=== PATIENT | female | born 1985 | race Caucasian/White ===

== ENCOUNTER 2018-06-08 22:58 | Emergency (ER) | payer OTHER ==
[2018-06-08 23:36] LABS: BILIRUBIN,URINE NEGATIVE (NEGATIVE); GLUCOSE, URINE (UA) NEGATIVE (NEGATIVE); KETONES,URINE (UA) >=80 mg/dL (NEGATIVE); LEUKOCYTE ESTERASE, URINE MODERATE (NEGATIVE); NITRITE,URINE POSITIVE (NEGATIVE); OCCULT BLOOD,URINE LARGE (NEGATIVE); PH,URINE 6.5 PH (5.0-7.5); PROTEIN,URINE 100 mg/dL (NEGATIVE); UROBILINOGEN,URINE 0.2 (NORMAL) E.U./dL (NORMAL)
--- NOTE | 2018-06-08 23:43 | ED Physician Documentation ---
PD HPI FEMALE - Stated complaint Stated Complaint: BK PX - Chief complaint Chief Complaint: Wound - History obtained from History obtained from: Patient - History of Present Illness Timing - onset: How many days ago (3) Timing - duration: Days (3) Timing - details: Gradual onset Pain level max: 5 Pain level max: 5 Severity Comments: mild Associated symptoms: Back pain, Dysuria Contributing factors: Review of Systems Ten Systems: 10 systems reviewed and negative Constitutional: reports: Reviewed and negative Eyes: reports: Reviewed and negative Ears: reports: Reviewed and negative Nose: reports: Reviewed and negative Throat: reports: Reviewed and negative Cardiac: reports: Reviewed and negative Respiratory: reports: Reviewed and negative GI: reports: Reviewed and negative : reports: Dysuria Skin: reports: Reviewed and negative Musculoskeletal: reports: Back pain, Reviewed and negative Neurologic: reports: Reviewed and negative Psychiatric: reports: Reviewed and negative Endocrine: reports: Reviewed and negative Immunocompromised: reports: Reviewed and negative PD PAST MEDICAL HISTORY - Past Medical History Past Medical History: No - Past Surgical History Past Surgical History: Yes Ortho: Arthroscopic surgery, Other - Present Medications Home Medications: Ambulatory Orders Medication Instructions Recorded Confirmed Nitrofurantoin Monohyd/M-Cryst 100 mg PO BID #14 capsule 06/09/18 [Macrobid 100 mg Capsule] - Allergies Allergies/Adverse Reactions: Allergies Allergy/AdvReac Type Severity Reaction Status Date / Time cephalexin [From Keflex] Allergy Hives Verified 06/08/18 23:05 - Social History Does the pt smoke?: No Smoking Status: Never smoker Does the pt drink ETOH?: No Does the pt have substance abuse?: No - Family History Family history: reports: Other (Reviewed and not pertinent) - Immunizations Immunizations are current?: Yes Immunizations: TDAP >10years/unknown - POLST Patient has POLST: No PD ED PE NORMAL - Vitals Vital signs reviewed: Yes - General General: Alert and oriented X 3, No acute distress - HEENT HEENT: PERRL - Neck Neck: Supple, no meningeal sign - Cardiac Cardiac: RRR, No murmur - Respiratory Respiratory: Clear bilaterally - Abdomen Abdomen: Normal bowel sounds, Soft, Non tender, Non distended - Derm Derm: Warm and dry - Extremities Extremities: No deformity - Neuro Neuro: Alert and oriented X 3 - Psych Psych: Normal mood, Normal affect Results - Vitals Vitals: Vital Signs - 24 hr 02/26/19 02/27/19 23:02 01:15 Temperature 36.4 C L Heart Rate 102 H 83 Respiratory 18 16 Rate Blood Pressure 132/78 H 114/71 O2 Saturation 96 99 Oxygen O2 Source Room air - Labs Labs: Laboratory Tests 06/08/18 23:29 Urine Color YELLOW Urine Clarity CLOUDY Urine pH 6.5 Ur Specific [place] 1.025 Urine Protein 100 H Urine Glucose (UA) NEGATIVE Urine Ketones >=80 H Urine Occult Blood LARGE H Urine Nitrite POSITIVE H Urine Bilirubin NEGATIVE Urine Urobilinogen 0.2 (NORMAL) Ur Leukocyte Esterase MODERATE H Urine RBC TNTC H Urine WBC >25 H Ur Squamous Epith Cells FEW Squamous Urine Bacteria Moderate H Ur Microscopic Review INDICATED Urine Culture Comments INDICATED PD MEDICAL DECISION MAKING - ED course Complexity details: reviewed results, re-evaluated patient, considered differential, d/w patient, d/w family ED course: 33-year-old female presents with dysuria. Labs consistent with urinary tract infection. Patient given 1 dose of IM Rocephin and discharged on Macrobid. Return precautions reviewed. No evidence of acute systemic infection with no fever and heart rate just above 100 consistent with .Patient encouraged to follow-up with OB provider within 24 hours. Departure - Departure Disposition: 01 Home, Self Care Clinical Impression: UTI in Qualifiers: Trimester: first trimester Qualified Code(s): O23.41 - Unspecified infection of urinary tract in , first trimester Instructions: ED UTI Cystitis Female Follow-Up: Your, OB [Other] Prescriptions: Nitrofurantoin Monohyd/M-Cryst [Macrobid 100 mg Capsule] 100 mg PO BID #14 capsule Comments: You may take Benadryl or Zyrtec as needed for rash. Follow-up with OB within 24 hours. Return with worsening symptoms. Take Tylenol up to 1000 mg 3 times daily as needed for pain. Discharge Date/Time: 06/09/18 01:53
[2018-06-08 23:51] LABS: CLARITY,URINE CLOUDY (CLEAR)
[2018-06-08 23:57] LABS: BACTERIA,URINE Moderate /HPF (None Seen); RBC,URINE TNTC /HPF (0-5); SQUAMOUS EPITHELIAL CELL,UR FEW Squamous (<= Few)
[2018-06-09] MEDS ORDERED: LIDOCAINE 1% 2 ML VIAL SUBQ ONE (00:05)
[2018-06-09] MEDS ORDERED: cefTRIAXone 1 GM VIAL IM STA (00:05)
[2018-06-09] MEDS ORDERED: ACETAMINOPHEN 500 MG TABLET PO STA (00:19)
[2018-06-09] MEDS ORDERED: FLUCONAZOLE 100 MG TABLET PO STA (00:39)
[2018-06-09 01:16] VITALS: BP 114/71
[2018-06-09] MEDS ORDERED: ONDANSETRON ODT 4 MG TABLET TL STA (01:18)
[2018-06-09] MEDS ORDERED: oxyCODONE 5 MG TABLET PO STA (01:18)
[2018-06-09] MEDS ORDERED: diphenhydrAMINE 25 MG CAPSULE PO STA (01:19)
== END 2018-06-09 01:53 | disposition home or self-care (01) ==
LOC: ED 22:58
DX: O23.41 Unspecified infection of urinary tract in pregnancy, first trimester (principal); Z3A.00 Weeks of gestation of pregnancy not specified
CPT/HCPCS: 81001; 87086; 96372; 99283; A9270; Q0162; 81003; 87181

== ENCOUNTER 2020-01-07 09:55 | Outpatient (CLI) | payer OTHER ==
--- NOTE | 2020-01-09 09:20 | MRI Report ---
PROCEDURE: Knee RT W/O INDICATIONS: RT KNEE PAIN TECHNIQUE: Noncontrast sagittal PD fast spin echo and T2 fast spin echo with fat saturation, sagittal 3-D gradie nt sequence with fat saturation; coronal T1 spin echo and PD fast spin echo with fat saturation, and axial PD fast spin echo with fat saturation through the knee. COMPARISON: None. FINDINGS: Image quality: Excellent. Menisci: The medial and lateral menisci demonstrate normal morphology and internal signal. The meni scal root ligaments appear intact. Cruciate ligaments: The anterior and posterior cruciate ligaments appear intact. Medial structures: The medial collateral ligament appears intact. Visualized portions of the pes an serinus tendons appear normal. No abnormal bursal fluid. Lateral structures: The lateral collateral ligament, long and short heads of the biceps femoris tend on appear intact. The popliteus tendon appears normal. Iliotibial band appears normal. Anterior structures: The quadriceps and patellar tendons appear intact. Mild T2 signal elevation wit hin the patellar tendon at the patellar insertion site. Lateral patellar subluxation. No femoral troc hlear dysplasia or ventral trochlear prominence. Moderate edema in the superolateral aspect of the in frapatellar fat pad. Bones and cartilage: No bone marrow contusions or fractures. There is mild degenerative marrow edema as well as subchondral cyst formation within the lateral patellar facet. Mild diffuse articular cart ilage loss overlies the weightbearing aspects of the medial femoral condyle and medial tibial plateau . Moderate to high-grade articular cartilage loss overlies the lateral patellar facet mid and inferio r aspects. Joint space: There is physiologic knee joint fluid. No Koch?s cyst. Normal appearing synovial pli are incidentally noted. IMPRESSION: 1. Findings consistent with lateral patellofemoral friction syndrome in the appropriate clinical sett ing. There is associated patellofemoral compartment articular cartilage loss. 2. No internal derangement. 3. Mild patellar tendinitis. Reviewed by: Lise Cruz MD on 01/09/2020 9:19 AM PDT Approved by: Lise Cruz MD on 01/09/2020 9:19 AM PDT Station ID: [id number]
== END 2020-01-07 09:56 | disposition home or self-care (01) ==
LOC: DI 09:55
PROVIDERS: ATTEND Nurse Practitioner Family
DX: M76.51 Patellar tendinitis, right knee (principal)

== ENCOUNTER 2020-02-28 06:13 | Day surgery (SDC) | payer OTHER ==
[2020-02-28] MEDS ORDERED: ONDANSETRON 4 MG/2 ML VIAL IVP ONE (06:14)
[2020-02-28] MEDS ORDERED: LIDOCAINE-MPF 2% 5 ML VIAL IM ONE (06:14)
[2020-02-28] MEDS ORDERED: DEXAMETHASONE 4 MG/ML VIAL IVP ONE (06:14)
[2020-02-28] MEDS ORDERED: MIDAZOLAM 2 MG/2 ML VIAL IVP ONE (06:14)
[2020-02-28] MEDS ORDERED: fentaNYL 100 MCG/2 ML VIAL IVP ONE (06:14)
[2020-02-28] MEDS ORDERED: CEFAZOLIN SODIUM IN 0.9 % NACL 0 GM/0 ML BAG IV ONE (06:19)
[2020-02-28] MEDS ORDERED: LACTATED RINGERS 1,000 ML IV ONE ×3 (06:19→12:00)
[2020-02-28 06:52] LABS: HCG UR QUAL NEGATIVE
[2020-02-28] MEDS ORDERED: BUPIVACAINE 0.25% PF 30 ML VIAL ONE (07:04)
[2020-02-28] MEDS ORDERED: EPINEPHrine 1 MG/ML AMP ONE (07:04)
--- NOTE | 2020-02-28 07:08 | ANESTHESIA ---
Pre-Anesthesia VS, & Labs - Diagnosis Right Knee Pain - Procedure Right Knee Scope PFL repair Vital Signs: Temp Pulse Resp BP Pulse Ox 36.4 C L 81 16 120/84 H 100 02/28/20 06:25 02/28/20 06:25 02/28/20 06:25 02/28/20 06:25 02/28/20 06:25 Height: 5 ft 6 in Weight (kg): 81.65 kg Body Mass Index: 29.0 BMI Classification: Overweight - NPO >8 hours - Is Patient ?: No - Lab Results Current Lab Results: HCG neg Home Medications and Allergies Home Medications: Ambulatory Orders Calcium Carbonate [Elemental Calcium] 600 mg PO 02/23/20 Cholecalciferol [Vitamin D3] 5,000 unit PO 02/23/20 Multivitamin 1 each PO 02/23/20 Calcium Carbonate [Elemental Calcium] 600 mg PO 02/23/20 Cholecalciferol [Vitamin D3] 5,000 unit PO 02/23/20 Multivitamin 1 each PO 02/23/20 Allergies/Adverse Reactions: Allergies Allergy/AdvReac Type Severity Reaction Status Date / Time azithromycin Allergy Hives Verified 02/23/20 11:27 cephalexin [From Keflex] Allergy Hives Verified 06/08/18 23:05 Anes History & Medical History - Anesthetic History Anesthesia Complications: reports: No previous complications Family history of Anesthesia Complications: Denies Family history of Malignant Hyperthermia: Denies - Medical History Cardiovascular: reports: None Pulmonary: reports: None Gastrointestinal: reports: None Urinary: reports: None Neuro: reports: None Musculoskeletal: reports: Other Endocrine/Autoimmune: reports: None Blood Disorders: reports: None Skin: reports: None Smoking Status: Never smoker Psychosocial: reports: No issues indicated History of Cancer?: No - Surgical History Orthopedic: Arthroscopic surgery Exam General: Alert, Oriented x3, Cooperative, No acute distress Dental: WNL Mouth Openin Fingerbreadth Neck Mobility: Normal Mallampati classification: III Thyromental Distance: 4-6 cm Respiratory: Lungs clear, Normal breath sounds, No respiratory distress, No accessory muscle use Cardiovascular: Regular rate, Normal S1, Normal S2, No murmurs Abdomen: Normal bowel sounds, Soft, No tenderness, No hepatospenomegaly, No masses Extremities: No clubbing, No cyanosis, No edema, Normal pulses, No tenderness/swelling Mental/Cognitive Status: Alert/Oriented X3, Normal for patient Cognitive Status: Within normal limits Plan Anesthesia Type: General, Adductor Block Consent for Procedure(s) Verified and Reviewed: Yes Code Status: Attempt Resuscitation ASA classification: 1-Healthy patient Is this case an emergency?: No
[2020-02-28] MEDS ORDERED: HYDROmorphone 0.5 MG/0.5 ML SYRINGE IVP PRN (07:10)
[2020-02-28] MEDS ORDERED: MORPHINE 2 MG/ML CARPUJECT IVP PRN (07:10)
[2020-02-28] MEDS ORDERED: ATROPINE ABBOJECT 1 MG/10 ML SYRINGE IVP PRN (07:10)
[2020-02-28] MEDS ORDERED: ePHEDrine 50 MG/ML VIAL IVP PRN (07:10)
[2020-02-28] MEDS ORDERED: NALOXONE 0.4 MG/ML VIAL IVP PRN (07:10)
[2020-02-28] MEDS ORDERED: fentaNYL 100 MCG/2 ML VIAL IVP PRN (07:10)
[2020-02-28] MEDS ORDERED: METOCLOPRAMIDE 10 MG/2 ML VIAL IVP PRN (07:10)
[2020-02-28] MEDS ORDERED: ONDANSETRON 4 MG/2 ML VIAL IVP PRN ×2 (07:10→12:18)
[2020-02-28] MEDS ORDERED: CLINDAMYCIN 600 MG/50 ML 50 ML IV ONE (07:19)
[2020-02-28] MEDS ORDERED: LACTATED RINGERS 1,000 ML IV SCH (08:00)
[2020-02-28] MEDS ORDERED: EPINEPHrine 1 MG/ML AMP IR ONE ×2 (08:08→08:28)
[2020-02-28] MEDS ORDERED: BACITRACIN 50,000 UNIT VIAL ONE ×2 (08:27→09:48)
[2020-02-28] MEDS ORDERED: BUPIVACAINE 0.25% PF 30 ML VIAL SUBQ ONE ×4 (08:28→11:29)
[2020-02-28] MEDS ORDERED: BACITRACIN 50,000 UNIT VIAL IM ONE (08:29)
[2020-02-28] MEDS ORDERED: oxyCODONE 5 MG TABLET PO PRN (12:18)
--- NOTE | 2020-02-28 12:36 | OPERATIVE REPORT ---
Operative Report - Other Other Information/Narrative: Date of Surgery: 28 February 2020 Pre-Op Diagnosis: Right knee loose body. Right patellar instability. Right patellar cartilage lesion. Procedure: Right knee arthroscopy with loose body removal and patellar chondroplasty. 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 She also reports intermittent range of motion issues with pain consistent with a loose body that can get lodged in bed places. She has been unable to be as active as she would like to be because she does not trust her knee. Her pain episodes are relatively intermittent. We discussed reconstruction of her medial patellar ligament and potential risks. She desired to move forward to an increase her activity and stabilize the patella. The risks, benefits, and alternatives were discussed. Risks include pain, bleeding, infection, damage to nearby structures and cartilage, lack of symptom relief, need for further surgery, DVT, PE, stroke, and . Written consent was obtained. Examination Under Anesthesia: ROM equal to the contralateral side. Patella is easily dislocated laterally. Stable dial at 30 & 90 degrees. Stable to varus and valgus stressing at 0 & 30 degrees. Normal Virgilio. Normal Pivot shift. No mechanical sensation Arthroscopic Findings: Loose bodies -10 mm x 15 mm x 3 mm thick loose body was removed from the lateral gutter Synovium -normal Patella cartilage -there is full-thickness stellate fissuring centrally with a small amount of loose cartilage which was removed with a shaver Trochlear cartilage -normal Medial femoral condyle cartilage -normal Medial tibial plateau cartilage -normal Medial meniscus -normal Anterior cruciate ligament -normal Posterior cruciate ligament -normal Lateral femoral condyle cartilage -normal Lateral tibial plateau cartilage -normal Lateral meniscus -normal Procedure in Detail: The patient was met in the pre-operative hold area on the day of the procedure. The operative extremity was signed and questions were answered. The patient was brought to the operating room and a general anesthetic was administered. Supine position was used and bony prominences were padded. An examination under anesthesia was performed. Standard prepping and draping was performed. A time out confirmed patient identification, laterality, procedure, allergies, antibiotics, and images. An Esmarch was used to exsanguinate the limb and the tourniquet was elevated to 250 mmHg. A standard diagnostic arthroscopy of the knee was performed through anterolateral and anteromedial portal sites. The anteromedial portal was created under direct visualization after localizing with a spinal needle. The findings can be found above. I then proceeded to remove the loose body without issue. I then used the shaver to debride unstable portions of the patellar cartilage. There remained full-thickness fissuring but there were no areas of full-thickness cartilage loss. Final images were taken and all arthroscopic fluid and instruments were removed from the knee. I then proceeded to the medial patellofemoral ligament reconstruction. A 4 cm incision was made over the medial border of the patella and sharp dissection was carried down to the fascia. I dissected along the border of the medial patella until I got to the area between layers 2 and 3. I then exploited this all the way down to the medial epicondyle. I then came down onto the patellar medial margin and cleared off an area starting at the 50 yard line and heading north 1.5 cm. I used a rongeur to scrape the bone taking care to not take down the cortex. I then placed two 2.4 mm anchors one at the 50 yard line and one 1 cm higher. The graft was sized to 6.5 mm and it was tied into place. I then made a 5 cm incision over the medial epicondyle and carried my dissection down to the fascia. A Beath pin was then placed in the sulcus between the medial epicondyle and the abductor tubercle. I took care to aim anterior and proximal. The sutures were then brought down to this location and I confirmed isometry. I then used C arm to confirm that I was at shuttles point. Satisfied with this I then opened the fascia down to bone and cleared off a small area. I drilled with a 7 mm tunnel going and 30 mm. The Beath pin was used to pass a passing suture. The graft was then tunneled down and measured. Excess was trimmed. The ends were prepped with tiger loop and fiber loop and then the sutures were passed. I then pulled tension on the graft and took it through range of motion. The graft was found to get too tight when in full flexion and the anchors from the patella ripped out. The graft was also found to be too short and did not have a full 3 cm into the tunnel. I then prepped another graft to 7 mm and made at 20 cm long. I then placed 2 to 3.0 mm anchors in the patella just superior to the prior anchors. They had a spread of 1.5 cm and were in excellent position. I assessed that my tunnel was too proximal due to the fact that it got too tight. I therefore replaced the Beath pin pulled down distally and overdrilled with a 7 mm drill correcting my position nearly 4 mm distal. The graft was then passed and tensioned at 30 degrees of flexion. I then took her through full range of motion and it was found that in full flexion the graft was a little bit tighter but it was nearly isometric throughout the range. I chose to accept this at this point. With proper tension on the graft and 8 mm interference screw was placed in the proximal aspect of the hole, forcing the graft to remain distally. Excellent purchase was obtained. I then used suture to tie the graft down to the periosteum on the distal portion of the tunnel. The graft was found to have excellent tension with good range of motion. I closed the medial retinaculum in a pants over vest fashion over my knots on the patella. The wounds were then copiously irrigated and closed in a layered fashion with 0 Vicryl in the fascia, 2-0 Vicryl in the dermis and Monocryl in the skin. Steri- Strips were applied. Excess passing suture was cut. 10 cc of 0.25% Marcaine without epinephrine was injected near the portal sites. A sterile dressing and compression stocking was placed. The patient was awakened and transferred to recovery in stable condition.
[2020-02-28] MEDS ORDERED: ONDANSETRON 4 MG/2 ML VIAL ONE (12:54)
--- NOTE | 2020-02-28 12:54 | ANESTHESIA POST OP EVALUATION ---
Anesthesia Post Eval - Post Anesthesia Eval Vitals: Last Vital Signs Temp 36.5 C 02/28/20 12:45 Pulse 104 H 02/28/20 12:45 Resp 16 02/28/20 12:45 BP 119/71 02/28/20 12:45 Pulse Ox 98 02/28/20 12:45 CV Function Including HR & BP: positive: Stable Pain Control: positive: Satisfactory Nausea & Vomiting: positive: Addtional Therapies Ordered Mental Status: positive: Patient Participates Respiratory Status: Airway Patent Hydration Status: Satisfactory Anesthesia Complications: positive: None
[2020-02-28 13:11] VITALS: BP 137/81
[2020-02-28] MEDS ORDERED: PROPOFOL 200 MG/20 ML VIAL IVP ONE (16:29)
--- NOTE | 2020-02-28 17:01 | XRAY Report ---
PROCEDURE: OR C-Arm Procedure INDICATIONS: RIGHT KNEE REPAIR TECHNIQUE: Limited intraoperative fluoroscopic image of the right knee COMPARISON: Right knee MRI dated 01/09/2020. FINDINGS: Single lateral view of the right knee demonstrates instrumentation of the knee at the level of the di stal femoral condyle. IMPRESSION: Intraoperative fluoroscopic support for right knee procedure. Please see operative report for further details. Reviewed by: Juan A Cortez MD on 02/28/2020 4:59 PM PST Approved by: Juan A Cortez MD on 02/28/2020 4:59 PM PST Station ID: [id number]
== END 2020-02-28 06:14 | disposition home or self-care (01) ==
LOC: SDS 06:13
PROVIDERS: ATTEND Orthopaedic Surgery
DX: S76.111A Strain of right quadriceps muscle, fascia and tendon, initial encounter (principal); M23.41 Loose body in knee, right knee; M23.51 Chronic instability of knee, right knee
CPT/HCPCS: 81025